=== PATIENT | male | born 1980 | race Hispanic/Latino ===

== ENCOUNTER 2025-01-02 15:05 | Inpatient (IN) | payer SELFPAY ==
[2025-01-02] MEDS ORDERED: ONDANSETRON 4 MG/2 ML VIAL ONE (15:53)
[2025-01-02] MEDS ORDERED: NA CHLORIDE 0.9% 1,000 ML ONE (15:53)
[2025-01-02 16:20] LABS: Anion Gap 10.7 mEq/L (5.0-15.0); Bilirubin Total 1.1 mg/dL (0.2-1.0); Potassium 3.7 mEq/L (3.5-5.1)
[2025-01-02 16:24] LABS: Absolute Eosinophils 0.1 K/uL (0-0.5); Absolute Lymphocytes (CBC) 1.8 K/uL (0.7-4.9); Absolute Neutrophil 6.2 K/uL (1.8-8.0); Basophils % 0.4 % (0-1.3); Eosinophils % 0.5 % (0-4.4); Hematocrit 46.2 % (39.6-49.0); Hemoglobin 15.1 g/dL (13.6-17.9); Lymphocytes % 19.9 % (15.3-44.8); MCH 29.9 pg (27.0-35.0); MCHC 32.7 g/dL (32.0-36.0); MCV 91.3 fL (80-100); MPV 9.6 fL (7.6-11.3); Monocytes % 11.1 % (3.3-12.3); Neutrophils % 68.1 % (41.7-73.7); Nucleated Red Blood Cells % 0.1 % (0-0); Platelets 185 thou/uL (152-406); RBC Red Blood Cell Count 5.06 M/uL (4.33-5.43); Red Cell Distribution Width 15.4 % (12.1-15.2)
[2025-01-02 16:27] LABS: Influenza A Ag Negative; Influenza B Ag Negative; SARS-CoV-2 Antigen Rapid Res Negative (Negative)
--- NOTE | 2025-01-02 17:12 | RAD REPORT ---
EXAMINATION: Abdomen Pelvis W Contrast CLINICAL INDICATION: Male, 44 years old.Abd pain;Distention TECHNIQUE: CT abdomen and pelvis was performed, after the administration of IV contrast, as per [facility] protocol. Axial, sagittal and coronal reconstructions were obtained. One or more of the following dose reduction techniques were used: Automated exposure control, adjustment of the mA and/o r kV according to patient size, and/or iterative reconstruction. Unless otherwise specified, incidental findings do not require dedicated imaging follow-up. [id number]. COMPARISON: No prior exam. FINDINGS: LOWER CHEST: Pulmonary edema with bilateral pleural effusions, right greater than left.No significant pericardial effusion. Moderate coronary artery calcifications. UPPER GI: No significant abnormality. LIVER: No significant focal abnormality. GALLBLADDER/BILE DUCTS: Pericholecystic edema likely related to underlying heart failure.? PANCREAS: No mass, ductal dilation, or deanne-pancreatic fluid. SPLEEN: Unremarkable. ADRENALS: No adrenal masses. KIDNEYS AND URETERS: No hydronephrosis.No suspicious renal mass.Nonobstructing renal calculi. ABDOMINAL AORTA AND OTHER VESSELS: Normal caliber aorta and IVC. PERITONEUM: Mild ascites. LYMPH NODES: No pathologic lymphadenopathy. ABDOMINAL WALL: Body wall edema SMALL BOWEL/COLON: Small bowel has normal course and caliber. No colonic wall thickening or pericolon ic inflammatory changes.Normal appendix. Mild diverticulosis without diverticulitis. URINARY BLADDER: Underdistended but grossly unremarkable. REPRODUCTIVE ORGANS: No pathologic process. MUSCULOSKELETAL: No acute or suspicious osseous abnormality. ADDITIONAL FINDINGS: None. IMPRESSION: No acute findings within the abdomen or pelvis. Findings concerning for congestive heart failure with pulmonary edema, bilateral pleural effusions, m ild ascites, and body wall edema. Gallbladder wall thickening is likely related to heart failure as well.
[2025-01-02 17:48] LABS: Troponin High Sensitivity 29.6 pg/mL (<58.9)
--- NOTE | 2025-01-02 18:06 | ER ---
Nurse's Notes [facility] Name: Ab Lo Age: 44 yrs Sex: Male : 1980 Arrival Date: 01/02/2025 Time: 15:05 Bed 14 Private MD: Diagnosis: New onset CHF, abdominal pain, difficulty breathing Presentation: 01/02 15:29 Chief complaint: Patient states: Abdominal pain, bloating, N/V, fever at night for 1 ll1 week. Coronavirus screen: Client denies travel out of the [place] in the last 14 days. At this time, the client does not indicate any symptoms associated with coronavirus-19. Ebola Screen: Patient denies travel to an Ebola-affected area in the 21 days before illness onset. Initial Sepsis Screen: Does the patient meet any 2 criteria? No. Patient's initial sepsis screen is negative. Does the patient have a suspected source of infection? No. Patient's initial sepsis screen is negative. Risk Assessment: Do you want to hurt yourself or someone else? Patient reports no desire to harm self or others. Onset of symptoms was December 26, 2024. 15:29 Method Of Arrival: Ambulatory ll1 15:29 Acuity: YEN 3 ll1 Triage Assessment: 15:31 General: Appears uncomfortable, Behavior is calm, cooperative, appropriate for age. ll1 Pain: Complains of pain in abdomen Quality of pain is described as aching, crampy. GI: Reports lower abdominal pain, upper abdominal pain, bloating, constipation, nausea. Historical: - Allergies: 15:31 No Known Allergies; ll1 - PMHx: 15:31 None; ll1 - Immunization history:: Adult Immunizations up to date. - Infectious Disease History:: Denies. - Social history:: Smoking status: Patient denies any tobacco usage or history of. Screenin:30 [facility] ED Fall Risk Assessment (Adult) History of falling in the last 3 months, me1 including since admission No falls in past 3 months (0 pts) Confusion or Disorientation No (0 pts) Intoxicated or Sedated No (0 pts) Impaired Gait No (0 pts) Mobility Assist Device Used No (0 pt) Altered Elimination No (0 pt) Score/Fall Risk Level 0 - 2 = Low Risk Maintained a safe environment, Provided non-skid footwear, Hourly rounding (assess needs \T\ fall precautionary measures) done. Abuse screen: Denies threats or abuse. Nutritional screening: No deficits noted. Tuberculosis screening: No symptoms or risk factors identified. Assessment: 15:30 General: Appears uncomfortable, ill, well groomed, well developed, well nourished, me1 Behavior is calm, cooperative, appropriate for age, Reports Abdominal pain, bloating, N/V, fever at night for 1 week. Pain: Complains of pain in abdomen Pain does not radiate. Pain currently is 5 out of 10 on a pain scale. Quality of pain is described as pressure, Pain began gradually, Is continuous. Neuro: Level of Consciousness is awake, alert, obeys commands, Oriented to person, place, time, situation, Appropriate for age. Cardiovascular: Patient's skin is warm and dry. Respiratory: Airway is patent Trachea midline Respiratory effort is even, unlabored, Respiratory pattern is regular, symmetrical. GI: No signs and/or symptoms were reported involving the gastrointestinal system. Bowel sounds present X 4 quads. Abd is soft X 4 quads. GI: Reports nausea, vomiting, since a Week ago. : No signs and/or symptoms were reported regarding the genitourinary system. EENT: No signs and/or symptoms were reported regarding the EENT system. Derm: Skin is intact, is healthy with good turgor, Skin is pink, warm \T\ dry. Musculoskeletal: No signs and/or symptoms reported regarding the musculoskeletal system. 17:20 Reassessment: No changes from previously documented assessment. Patient and/or family ll1 updated on plan of care and expected duration. Pain level reassessed. Vital Signs: 15:29 BP 125 / 96; Resp 18; Temp 98.1; Pulse Ox 97% on R/A; Weight 75.75 kg; Height 5 ft. 7 ll1 in. ; Pain 10/10; 16:00 BP 124 / 100; Pulse 100; Resp 18; Pulse Ox 98% ; me1 17:00 BP 126 / 105; Pulse 83; Resp 16; Pulse Ox 97% ; me1 18:00 BP 122 / 107; Pulse 90; Resp 19; Pulse Ox 93% on R/A; me1 19:00 BP 126 / 105; Pulse 87; Resp 18; Pulse Ox 98% ; me1 20:00 BP 112 / 82; Pulse 89; Resp 21; Pulse Ox 95% ; me1 21:00 BP 106 / 83; Pulse 86; Resp 21; Pulse Ox 97% ; me1 15:29 Body Mass Index 26.16 (75.75 kg, 170.18 cm) ll1 15:29 Pain Scale: Adult [facility] ED Course: 15:17 Patient arrived in ED. im 15:18 Kp Wade MD is Attending Physician. sp3 15:30 Patient has correct armband on for positive identification. Bed in low position. Call me1 light in reach. Side rails up X2. Provided Education on: POC. Verbalized understanding.. Client placed on continuous cardiac and pulse oximetry monitoring. NIBP monitoring applied. property assessment monitor on. Pulse ox on. NIBP on. 15:30 No provider procedures requiring assistance completed. me1 15:31 Triage completed. ll1 15:31 Arm band placed on Patient placed in an exam room, on a stretcher. ll1 15:42 Emily Keen, RN is Primary Nurse. me1 15:57 Initial lab(s) drawn, by ar, sent to lab. COVID swab sent to lab. Flu and/or RSV swab me1 sent to lab. Strep swab sent to lab. Inserted saline lock: 22 gauge in right antecubital area, using aseptic technique. 15:58 Lactate w/ 2H reflex if indic. Sent. me1 15:58 Group A Streptococcus Rapid Sent. me1 15:58 COVID-19 Ag + Flu A+B Ag Sent. me1 15:58 CBC with Diff Sent. me1 15:58 CMP Sent. me1 15:58 Lipase Sent. me1 17:03 CT Abd/Pelvis - IV Contrast Only In Process Unspecified. EDMS 17:31 NT PRO-BNP Sent. me1 17:31 Troponin HS Sent. me1 18:01 EKG done, by ED staff, reviewed by Kp Wade MD. me1 18:04 Alistair Martin MD is Hospitalizing Provider. sp3 18:06 Urine collected: clean catch specimen, cloudy, garry colored. me1 19:12 XRAY Chest (1 view) In Process Unspecified. EDMS 20:49 Patient admitted, IV remains in place. me1 Administered Medications: 16:02 Drug: Ondansetron IVP 4 mg IVP once; over 2 minutes Route: IVP; Site: right antecubital;me1 16:13 Follow up: Response: No adverse reaction; Nausea is decreased me1 16:02 Drug: NS 0.9% IV 1000 ml IV at 1 bolus Per protocol; to be given as a bolus over 60 me1 minutes Route: IV; Rate: 1 bolus; Site: right antecubital; 20:43 Follow up: IV Status: Completed infusion me1 18:15 Drug: Furosemide IVP 40 mg IVP once; give over 2 minutes Route: IVP; Site: right me1 antecubital; 18:24 Follow up: Response: No adverse reaction me1 Medication: 15:30 VIS not applicable for this client. me1 Output: 19:41 Urine: 2000ml (Voided); Total: 2000ml. me1 20:40 Urine: 800ml (Voided); Total: 2800ml. me1 Outcome: 18:05 Decision to Hospitalize by Provider. sp3 20:49 Admitted to Tele accompanied by tech, via wheelchair, room 408, with chart, Report me1 called to faxed, receipt confirmed with Faiza 20:49 Condition: stable 20:49 Instructed on the need for admit, 21:25 Patient left the ED. me1 Signatures: Dispatcher [employer] EDShahbaz Boogie RN RN ll1 Kp Wade MD MD sp3 Flor Dickson Michelle, RN RN me1 Corrections: (The following items were deleted from the chart) 15:32 15:29 Acuity: YEN 4 ll1 ll1 20:43 15:29 Chief complaint: Patient states: Abdominal pain, bloating, N/V, fever at night me1 for 1 week. ll1
--- NOTE | 2025-01-02 18:06 | EDPHYS ---
Physician Documentation [facility] Name: Ab Lo Age: 44 yrs Sex: Male : 1980 Arrival Date: 01/02/2025 Time: 15:05 Bed 14 Private MD: ED Physician Kp Wade HPI: 01/02 15:38 This 44 yrs old Male presents to ER via Ambulatory with complaints of sp3 Abdominal Pain, Abdominal Swelling, Nausea/Vomiting, Weakness. 15:38 44-year-old male with no known past medical history presents with chief complaint 1 sp3 week of abdominal pain, abdominal distention, nausea and vomiting. He denies any other symptoms including fever, chest pain, shortness of breath, back pain, symptoms, bleeding, syncope, rash, known sick contacts, travel history, prolonged immobilization, or any other signs or symptoms on ROS at this time. He does endorse sore throat as an exception. Patient has no primary care physician, takes no medications, and has had no major surgeries.. Historical: - Allergies: 15:31 No Known Allergies; ll1 - PMHx: 15:31 None; ll1 - Immunization history:: Adult Immunizations up to date. - Infectious Disease History:: Denies. - Social history:: Smoking status: Patient denies any tobacco usage or history of. ROS: 15:39 Constitutional: Negative for fever, chills, and weight loss, Eyes: Negative for injury, sp3 pain, redness, and discharge, Neck: Negative for injury, pain, and swelling, Cardiovascular: Negative for chest pain, palpitations, and edema, Respiratory: Negative for shortness of breath, cough, wheezing, and pleuritic chest pain, Back: Negative for injury and pain, MS/Extremity: Negative for injury and deformity, Skin: Negative for injury, rash, and discoloration, Neuro: Negative for headache, weakness, numbness, tingling, and seizure, Psych: Negative for depression, anxiety, suicide ideation, homicidal ideation, and hallucinations, Allergy/Immunology: Negative for hives, rash, and allergies, Endocrine: Negative for neck swelling, polydipsia, polyuria, polyphagia, and marked weight changes, 15:39 All other systems are negative, Exam: 15:39 Constitutional: This is a well developed, well nourished patient who is awake, alert, sp3 and in no acute distress. Head/Face: Normocephalic, atraumatic. Eyes: Pupils equal round and reactive to light, extra-ocular motions intact. Lids and lashes normal. Conjunctiva and sclera are non-icteric and not injected. Cornea within normal limits. Periorbital areas with no swelling, redness, or edema. ENT: Nares patent. No nasal discharge, no septal abnormalities noted. External auditory canals are clear. Oropharynx with no redness, swelling, or masses, exudates, or evidence of obstruction, uvula midline. Mucous membranes moist. Neck: Trachea midline, no thyromegaly or masses palpated, and no cervical lymphadenopathy. Supple, full range of motion without nuchal rigidity, or vertebral point tenderness. No Meningismus. Chest/axilla: Normal chest wall appearance and motion. Nontender with no deformity. No lesions are appreciated. Cardiovascular: Regular rate and rhythm with a normal S1 and S2. No gallops, murmurs, or rubs. Normal PMI, no JVD. No pulse deficits. Respiratory: Lungs have equal breath sounds bilaterally, clear to auscultation and percussion. No rales, rhonchi or wheezes noted. No increased work of breathing, no retractions or nasal flaring. Back: No spinal tenderness. No costovertebral tenderness. Full range of motion. Skin: Warm, dry with normal turgor. Normal color with no rashes, no lesions, and no evidence of cellulitis. MS/ Extremity: Pulses equal, no cyanosis. Neurovascular intact. Full, normal range of motion. Neuro: Awake and alert, GCS 15, oriented to person, place, time, and situation. Cranial nerves II-XII grossly intact. Motor strength 5/5 in all extremities. Sensory grossly intact. Cerebellar exam normal. Normal gait. Psych: Awake, alert, with orientation to person, place and time. Behavior, mood, and affect are within normal limits. 15:39 Abdomen/GI: Abdomen soft, mildly distended, diffuse pain to palpation without peritoneal signs, rebound or guarding., 17:59 ECG was reviewed by the Attending Physician. EKG demonstrates normal sinus rhythm at 88 sp3 bpm with normal intervals except QTc of 505, leftward axis, nonspecific diffuse ST/T changes without evidence of acute ischemia. Vital Signs: 15:29 BP 125 / 96; Resp 18; Temp 98.1; Pulse Ox 97% on R/A; Weight 75.75 kg; Height 5 ft. 7 ll1 in. ; Pain 10/10; 16:00 BP 124 / 100; Pulse 100; Resp 18; Pulse Ox 98% ; me1 17:00 BP 126 / 105; Pulse 83; Resp 16; Pulse Ox 97% ; me1 18:00 BP 122 / 107; Pulse 90; Resp 19; Pulse Ox 93% on R/A; me1 19:00 BP 126 / 105; Pulse 87; Resp 18; Pulse Ox 98% ; me1 20:00 BP 112 / 82; Pulse 89; Resp 21; Pulse Ox 95% ; me1 21:00 BP 106 / 83; Pulse 86; Resp 21; Pulse Ox 97% ; me1 15:29 Body Mass Index 26.16 (75.75 kg, 170.18 cm) ll1 15:29 Pain Scale: Adult ll1 MDM: 15:22 Medical Screening Exam initiated sp3 15:40 Data reviewed: vital signs, nurses notes, lab test result(s), radiologic studies. ED sp3 course: 44-year-old male with abdominal pain and distention. Differential diagnosis includes gastritis, biliary pathology, cholelithiasis, cholecystitis, pancreatitis, colitis, viral illness, foodborne illness, ileus, SBO, pathology including UTI and kidney stone, among others. Workup will include general labs, CT scan of the abdomen pelvis with IV contrast, IV fluids, ondansetron IV, and general supportive care and observation. Disposition pending workup and patient course.. 18:00 ED course: Abdominal workup negative. Patient has abdominal fullness likely from body sp3 wide edema and congestive heart failure leading to his sore throat as well. Troponin negative and EKG demonstrates no ischemic findings. Will administer Lasix and admit patient for cardiology consult and echocardiogram.. 01/02 15:34 Order name: CBC with Diff; Complete Time: 17:27 sp3 01/02 15:34 Order name: CMP; Complete Time: 17:27 sp3 01/02 15:34 Order name: Lipase; Complete Time: 17:27 sp3 01/02 15:34 Order name: Urinalysis w/ reflexes sp3 01/02 15:34 Order name: COVID-19 Ag + Flu A+B Ag; Complete Time: 17:27 3 01/02 15:34 Order name: Group A Streptococcus Rapid; Complete Time: 17:27 3 01/02 15:34 Order name: Lactate w/ 2H reflex if indic.; Complete Time: 17:27 3 01/02 16:30 Order name: Throat Culture [facility] 01/02 17:28 Order name: NT PRO-BNP; Complete Time: 17:54 3 01/02 17:28 Order name: Troponin HS; Complete Time: 17:54 3 01/02 19:40 Order name: CBC with Automated Diff [facility] 01/02 19:40 Order name: CBC with Automated Diff [facility] 01/02 19:40 Order name: Comprehensive Metabolic Panel [facility] 01/02 19:40 Order name: Comprehensive Metabolic Panel [facility] 01/02 19:40 Order name: Lipid Profile [facility] 01/02 19:40 Order name: Lipid Profile [facility] 01/02 19:40 Order name: Magnesium [facility] 01/02 19:40 Order name: Magnesium [facility] 01/02 19:40 Order name: Phosphorus [facility] 01/02 19:40 Order name: Phosphorus [facility] 01/02 15:34 Order name: CT Abd/Pelvis - IV Contrast Only; Complete Time: 17:27 3 01/02 17:28 Order name: XRAY Chest (1 view) [facility] 01/02 19:40 Order name: Echo without Doppler (2D) [facility] 01/02 19:40 Order name: Chest Pa And Lat (2 Views) [facility] 01/02 19:40 Order name: Chest Pa And Lat (2 Views) [facility] 01/02 15:34 Order name: IV Saline Lock; Complete Time: 15:58 3 01/02 15:34 Order name: Labs collected and sent; Complete Time: 15:58 3 01/02 17:28 Order name: Cardiac monitoring; Complete Time: 18:01 3 01/02 17:28 Order name: EKG - Nurse/Tech; Complete Time: 18:01 3 01/02 17:28 Order name: O2 Sat Monitoring; Complete Time: 17:31 3 Administered Medications: 16:02 Drug: Ondansetron IVP 4 mg IVP once; over 2 minutes Route: IVP; Site: right antecubital;me1 16:13 Follow up: Response: No adverse reaction; Nausea is decreased me1 16:02 Drug: NS 0.9% IV 1000 ml IV at 1 bolus Per protocol; to be given as a bolus over 60 me1 minutes Route: IV; Rate: 1 bolus; Site: right antecubital; 20:43 Follow up: IV Status: Completed infusion me1 18:15 Drug: Furosemide IVP 40 mg IVP once; give over 2 minutes Route: IVP; Site: right me1 antecubital; 18:24 Follow up: Response: No adverse reaction me1 Disposition Summary: 01/02/25 18:05 Hospitalization Ordered Notes: Hospitalization Status: Inpatient Admission sp3 Provider: Alistair Martin sp3 Location: Telemetry/MedSurg (Inpatient) sp3 Condition: Stable sp3 Problem: new sp3 Symptoms: have worsened sp3 Bed/Room Type: Standard sp3 Room Assignment: 408(01/02/25 20:24) kmf Diagnosis - New onset CHF, abdominal pain, difficulty breathing sp3 Forms: - Medication Reconciliation Form sp3 - SBAR form sp3 - Leadership Thank You Letter sp3 Signatures: Dispatcher [employer] Shahbaz Osorio RN RN ll1 Kp Wade MD MD sp3 Emily Keen RN RN nh1 Danay Becker [facility] Corrections: (The following items were deleted from the chart) 15:35 15:35 CBC+H.LAB.BRZ ordered. EDMS EDMS 15:35 15:35 COMPREHENSIVE METABOLIC PANEL+C.LAB.BRZ ordered. EDMS EDMS 15:35 15:35 LIPASE+C.LAB.BRZ ordered. EDMS EDMS 15:35 15:35 Urinalysis+U.LAB.BRZ ordered. EDMS EDMS 15:35 15:35 COVID-19 Ag + Flu A+B Ag+I.LAB.BRZ ordered. EDMS EDMS 15:35 15:35 Group A Streptococcus Rapid Sc+I.LAB.BRZ ordered. EDMS EDMS 15:35 15:35 LACTATE+C.LAB.BRZ ordered. EDMS EDMS 15:35 15:35 Abdomen Pelvis W Con+CT.RAD.BRZ ordered. EDMS EDMS 17:28 17:28 Chest Single View+RAD.RAD.BRZ ordered. EDMS EDMS 20:24 18:05 sp3 kmf
[2025-01-02 18:10] LABS: Sqamous Epithelial <5 /HPF (None Seen); Urine Bacteria None Seen /HPF (<20); Urine Bilirubin NEGATIVE (Negative); Urine Blood Negative (Negative); Urine Clarity Clear (Clear); Urine Color Yellow (Yellow); Urine Culture Reflex Order NOT NEEDED; Urine Glucose NEGATIVE (Negative); Urine Ketones 1+ (Negative); Urine Microscopic Reflex YN ORDER UMIC; Urine Mucus Slight /HPF (None Seen); Urine Nitrite NEGATIVE (Negative); Urine Protein 2+ (Negative); Urine RBC <5 /HPF (None Seen); Urine Urobilinogen Normal (Normal); Urine WBC <5 /HPF (<5); Urine Yeast (Budding) Trace /HPF (None Seen); Urine pH 6.5 (5.0-7.0)
[2025-01-02] MEDS ORDERED: FUROSEMIDE 40 MG/4 ML VIAL ONE (18:13)
[2025-01-02 18:18] LABS: Specific Gravity > 1.030 (1.005-1.030)
--- NOTE | 2025-01-02 19:22 | RAD REPORT ---
EXAM: Chest Single View HISTORY: 44 years Male CHF, abnormal CT A/P COMPARISON: None. FINDINGS: LUNGS/PLEURA: Pulmonary edema. CARDIAC/MEDIASTINUM: Moderate cardiomegaly. UPPER ABDOMEN: No significant abnormality. BONES: No acute abnormality. LINES/TUBES/OTHER: N/A IMPRESSION: Pulmonary edema.
--- NOTE | 2025-01-02 19:24 | P.HP ---
Certification for Inpatient Patient admitted to: Inpatient With expected LOS: >2 Midnights Practitioner: I am a practitioner with admitting privileges, knowledge of patient current condition, hospital course, and medical plan of care. Services: Services provided to patient in accordance with Admission requirements found in Title 42 Section 412.3 of the Code of Federal Regulations Patient History Date of Service: 01/02/25 Reason for admission: abdominal distension History of Present Illness: 44-year-old male presents to the ER with complaints of 1 week history of abdominal pain abdominal swelling, neck swelling, nausea and vomiting and weakness. Reported some dyspnea especially dyspnea on exertion. He reports he is generally in [facility]. States he drinks about 3-4 beers a week. He states that his stools have recently been very watery. Denies any blood in the stool. He states he may have had fevers at night but not sure he did not check. A CT of the abdomen pelvis was done which did not show any acute findings. Lungs did show pulmonary edema with bilateral pleural effusion. As well as moderate coronary artery calcification. His lab work did reveal an elevated BNP. Review of Systems 10-point ROS is otherwise unremarkable Respiratory: Shortness of Breath Cardiovascular: Chest Pain, Palpitations Gastrointestinal: Abdominal Pain, Diarrhea, Distention Physical Examination - Physical Exam General: Alert, Oriented x3 HEENT: Atraumatic, Normocephalic Respiratory: Clear to auscultation bilaterally, Normal air movement Cardiovascular: Regular rate/rhythm Gastrointestinal: Distended Musculoskeletal: No swelling Integumentary: No rashes Neurological: Normal speech, Normal strength at 5/5 x4 extr - Studies Laboratory Data (last 24 hrs) 01/02/25 01/02/25 15:51 15:51 WBC 9.10 Hgb 15.1 Hct 46.2 Plt Count 185 Sodium 140 Potassium 3.7 BUN 16 Creatinine 0.97 Glucose 104 Total Bilirubin 1.1 H AST 43 H ALT 58 Alkaline Phosphatase 94 Lipase 47 Assessment and Plan - Problems (Diagnosis) (1) Diarrhea Current Visit: Yes Status: Acute (2) Abdominal pain Current Visit: Yes Status: Acute - Plan 44 yo male presents with one week history of abdominal distension, sob, and chest and abdominal pain #suspected chf exacerbation --no baseline echo --elevated bnp --check echo, lasix, salt restriction #Pulmonary edema --as above --cxr pending #abdominal pain, and distension --drinks 3-4 beers per week --will order maalox, lasix, ppi lipase wnl #diarrhea --send stool studies DVT: SCDs - Advance Directives Does patient have a Living Will: No Does patient have a Durable POA for Healthcare: No
[2025-01-02] MEDS ORDERED: MAGNES/ALUMIN/SIMET 30ML UCUP PO PRN (19:31)
[2025-01-02] MEDS ORDERED: ONDANSETRON 4 MG/2 ML VIAL IV PRN (19:31)
[2025-01-02] MEDS: FUROSEMIDE 40 MG/4 ML VIAL IV SCH (19:31)
[2025-01-02 23:26] VITALS: BMI 26.2
[2025-01-03] MEDS: PANTOPRAZOLE 40MG TABLET PO SCH (06:16)
[2025-01-03 06:45] LABS: Absolute Eosinophils 0.1 K/uL (0-0.5); Absolute Lymphocytes (CBC) 1.7 K/uL (0.7-4.9); Absolute Monocytes 0.7 K/uL (0.1-1.3); Absolute Neutrophil 4.4 K/uL (1.8-8.0); Basophils % 0.6 % (0-1.3); Hematocrit 46.7 % (39.6-49.0); Hemoglobin 15.4 g/dL (13.6-17.9); MCH 30.5 pg (27.0-35.0); MCV 92.4 fL (80-100); MPV 9.2 fL (7.6-11.3); Monocytes % 10.7 % (3.3-12.3); Neutrophils % 62.7 % (41.7-73.7); Nucleated Red Blood Cells % 0.1 % (0-0); Platelets 171 thou/uL (152-406); RBC Red Blood Cell Count 5.05 M/uL (4.33-5.43); Red Cell Distribution Width 15.3 % (12.1-15.2)
[2025-01-03 07:02] LABS: Albumin 2.8 g/dL (3.4-5.0); Albumin/Globulin Ratio 0.9 (1.1-1.8); Anion Gap 9.8 mEq/L (5.0-15.0); Phosphorus 3.3 mg/dL (2.5-4.9); Potassium 3.8 mEq/L (3.5-5.1); Protein, Total 5.8 g/dL (6.4-8.2)
[2025-01-03] MEDS: ENOXAPARIN 40 MG/0.4 ML SQ SCH (08:33)
[2025-01-03 10:30] LABS: Blood Morphology Comment NOT SEEN (NOT SEEN); Platelet Estimate ADEQ; Platelets Clumped FEW; White Blood Cell Scan OK (OK)
--- NOTE | 2025-01-03 11:32 | RAD REPORT ---
EXAMINATION: TWO VIEW CHEST XR CLINICAL INDICATION: Male, 44 years old. chf TECHNIQUE: 2 view radiographs of the chest were performed. COMPARISON: 01/02/2025 FINDINGS: Partial but near complete improvement of central interstitial prominence and prominent vascular marlo ngs. No pneumothorax or sizable effusion. Partial improvement of cardiomegaly. Mediastinal contours are unremarkable. IMPRESSION: Improving edema/congestion as above.
--- NOTE | 2025-01-03 12:18 | EKG ---
Test Date: 2025-01-02 Test Time: 17:56:52 Store Clerk Checker: MEASUREMENT RESULTS: Intervals: Rate: 88 CA: 174 QRSD: 94 QT: 418 QTc: 505 [place]: P: 63 CA: 174 QRS: 149 T: 263 INTERPRETIVE STATEMENTS: Normal sinus rhythm Indeterminate axis Low voltage QRS Cannot rule out Anteroseptal infarct, age undetermined ST & T wave abnormality, consider inferolateral ischemia Prolonged QT Abnormal ECG No previous ECG available for comparison Electronically Signed On 01-03-25 12:18:18 CDT by Bennie Root
--- NOTE | 2025-01-03 14:05 | ECHO ---
HEIGHT: 5 ft 7 in WEIGHT: 167 lb 0 oz DATE OF STUDY: 01/03/[address]: Alistair Martin MD 2-DIMENSIONAL: YES M.MODE: YES DOPPLER: YES COLOR FLOW: YES TDS: PORTABLE: YES DEFINITY: BUBBLE STUDY: DIAGNOSIS: CONGESTIVE HEART FAILURE CARDIAC HISTORY: CATHERIZATION: NO SURGERY: NO PROSTHETIC VALVE: NO PACEMAKER: NO MEASUREMENTS (cm) DIASTOLIC (NORMALS) SYSTOLIC (NORMALS) IVSd 0.8 (0.6-1.2) LA Diam 4.3 (1.9-4.0) LVEF 30-35% LVIDd 5.6 (3.5-5.7) LVIDs 5.4 (2.0-3.5) %FS LVPWd 1.1 (0.6-1.2) Ao Diam 3.0 (2.0-3.7) 2 DIMENSIONAL ASSESSMENT: RIGHT ATRIUM: NORMAL LEFT ATRIUM: MILDLY DILATED RIGHT VENTRICLE: NORMAL LEFT VENTRICLE: MILDLY DILATED TRICUSPID VALVE: MILD TRICUSPID REGURGITATION MITRAL VALVE: MILD MITRAL REGURGITATION PULMONIC VALVE: NORMAL AORTIC VALVE: NORMAL PERICARDIAL EFFUSION: NONE AORTIC ROOT: NORMAL LEFT VENTRICULAR WALL MOTION: SEVERE GLOBAL HYPOKINESIS DOPPLER/COLOR FLOW: GRADE II DIASTOLIC DYSFUNCTION COMMENTS: 1. SEVERELY REDUCED LEFT VENTRICULAR SYSTOLIC FUNCTION, EJECTION FRACTION 30-35%, SEVERE GLOBAL HYPOKINESIS 2. DIASTOLIC DYSFUNCTION 3. ELEVATED FILLING PRESSURE (RIGHT ATRIAL PRESSURE 15-20 mmHg) TECHNOLOGIST: RM XIAO
--- NOTE | 2025-01-03 18:18 | P.PN ---
Date of Service: 01/03/25 Subjective Awake and feeling better this morning no new complaints ROS 10 point ROS as noted above, otherwise negative Physical Exam General: Alert and Oriented x3, NAD HEENT: Atraumatic, Normocephalic Respiratory: Clear to auscultation bilaterally, Normal air movement Cardiovascular: RRR, S1 S2 present Gastrointestinal: Distended, nontender Musculoskeletal: No swelling Integumentary: No rashes Neurological: Normal speech, Normal strength at 5/5 x4 extr Vitals Reviewed Problem list suspected new onset chf exacerbation Pulmonary edema abdominal pain, and distension diarrhea Assessment and Plan suspected new onset chf exacerbation -no baseline echo -elevated bnp - echo reports EF 30-35%, mild tricuspid and mitral regurgitation, diastolic dysfunction -continue lasix, salt restriction -consult Cardiology Pulmonary edema -as above -cxr pending abdominal pain, and distension -drinks 3-4 beers per week - maalox, lasix, ppi -lipase wnl diarrhea -send stool studies -potassium stable DVT Ppx: SCDs Full code LOS 2 days
--- NOTE | 2025-01-04 11:45 | P.CNS ---
Date of Consult: 01/04/25 Chief Complaint: abdominal distension History of Present Illness: Patient with no significant PMH presented with worsening SOB, PECK and abdominal distention, report occasional chest pain, no palpitations, no syncope. Allergies No Known Allergies Allergy (Unverified 01/02/25 19:25) Home medications list reviewed: Yes Home Medications: NK [No Home Meds] 01/02/25 - Past Medical/Surgical History Diabetic: No - Social History Place of Residence: Home Review of Systems 10-point ROS is otherwise unremarkable Physical Examination Temp Pulse Resp BP Pulse Ox 97.6 F 83 17 108/84 94 01/04/25 08:00 01/04/25 08:18 01/04/25 08:00 01/04/25 08:18 01/04/25 08:00 General: Alert, In no apparent distress HEENT: Atraumatic, PERRLA, Mucous membr. moist/pink, EOMI, Sclerae nonicteric Neck: Supple, 2+ carotid pulse no bruit, No LAD, Without JVD or thyroid abnormality Respiratory: Clear to auscultation bilaterally, Normal air movement Cardiovascular: Regular rate/rhythm, Normal S1 S2 Gastrointestinal: Normal bowel sounds, No tenderness Musculoskeletal: No tenderness Integumentary: No rashes Neurological: Normal gait, Normal speech, Normal tone, Normal affect Lymphatics: No axilla or inguinal lymphadenopathy - Problems (1) Acute systolic heart failure Current Visit: Yes Status: Acute Plan: Patient with new drop in EF, plan is to do coronary angiogram increase lasix to 40 mg IV BID Add coreg 3.125 mg po bid add lisinopril 2.5 mg daily add aldactone 12.5 mg daily continue to monitor input and output and electrolytes.
[2025-01-04] MEDS ORDERED: HEPARIN 10,000 UNIT/10 ML VIAL IV ONE (11:56)
[2025-01-04] MEDS ORDERED: HEPA 1000U/500MLS 1,000 UNIT/500 ML BAG IV ONE (11:56)
[2025-01-04] MEDS ORDERED: NITROGLYCERIN/D5W 50 MG/250 ML BTL IV ONE (11:56)
[2025-01-04] MEDS ORDERED: LIDOCAINE 1% 20 ML MDV ONE (11:57)
[2025-01-04] MEDS ORDERED: CLOPIDOGREL 75 MG TABLET ONE (11:57)
[2025-01-04] MEDS ORDERED: HEPARIN 5000 UNIT/ML 1 ML VIAL ONE (11:57)
[2025-01-04] MEDS ORDERED: ATROPINE SULF 1 MG/10 ML SYR IV ONE (11:57)
[2025-01-04] MEDS ORDERED: MIDAZOLAM HCL 2 MG/2 ML INJ ONE (11:57)
[2025-01-04] MEDS ORDERED: TICAGRELOR 90 MG TABLET PO ONE (11:58)
[2025-01-04] MEDS ORDERED: FENTANYL CITR 100 MCG/2 ML ONE (11:58)
[2025-01-04] MEDS ORDERED: ASPIRIN 325 MG TAB ONE (11:58)
[2025-01-04] MEDS ORDERED: NA CHLORIDE 0.9% 500 ML ONE (12:11)
--- NOTE | 2025-01-04 13:14 | OP ---
Date of Procedure: 01/04/2025 Surgeon: Bennie Root Procedure Performed: Selective coronary angiogram. Indication For Procedure: Acute systolic heart failure. Complications: None. Estimated Blood Loss: Less than 50 cc. Access: Right radial, closed by TR band. Sedation Time: 20 minutes with 1 of Versed and 25 of fentanyl. Description Of Procedure: After risks, benefits, and alternatives were explained to the patient, the patient agreed to proceed with procedure and signed informed consent. The patient was brought back to the grinding and polishing laborer, prepped and draped in sterile fashion. Time-out was performed. Sedation was admini stered. Next, right radial access was obtained using ultrasound-guided micropuncture technique. Tig er 4 catheter was advanced through the aortic root. Selective angiogram was done using same catheter . At the end of procedure, catheter was removed over a J-wire. Sheath was removed. TR band was caro lied. Hemostasis achieved. The patient was moved back to recovery in stable condition. Findings: 1. Left main normal. 2. LAD normal. 3. Left circ normal. 4. RCA normal. Assessment And Plan: Normal coronaries, nonischemic cardiomyopathy. Plan is to continue medical management. YANN/ADAM Voice ID: [id number] Report ID: [id number]
--- NOTE | 2025-01-04 14:16 | P.PN ---
Date of Service: 01/04/25 Subjective Continues to do well [facility] today with normal coronaries no new complaints ROS 10 point ROS as noted above, otherwise negative Physical Exam General: AAO x3, NAD Respiratory: Clear to auscultation bilaterally, Normal air movement Cardiovascular: RRR, S1 S2 present Gastrointestinal: soft and nontender on palpation Musculoskeletal: No swelling Integumentary: No rashes Neurological: Normal speech, Normal strength at 5/5 x4 extr Vitals Reviewed Problem list New onset CHFexacerbation Pulmonary edema abdominal pain, and distension diarrhea Assessment and Plan New onset CHF exacerbation - no baseline echo - elevated bnp - echo reports EF 30-35%, mild tricuspid and mitral regurgitation, diastolic dysfunction -continue lasix, salt restriction -Cardiology following, add Coreg 3.125 mg twice daily, lisinopril 2. 5 mg daily, Aldactone 12.5 mg daily -[facility] with normal coronaries (01/04/25) Pulmonary edema -as above -cxr reports "Improving edema/congestion as above" Abdominal pain/distension -drinks 3-4 beers per week -maalox, lasix, ppi -lipase wnl Diarrhea -send stool studies if possible -potassium stable DVT Ppx: SCDs Full code LOS 2 days
[2025-01-04 15:16] VITALS: O2SAT 98
[2025-01-04 16:11] VITALS: TEMP 97.8
[2025-01-04] MEDS: FUROSEMIDE 40 MG/4 ML VIAL IV SCH (16:14)
[2025-01-04] MEDS: HYDROCODONE/APAP 5/325 MG TAB PO ONE (16:51)
[2025-01-04 16:52] VITALS: BP 101/70
[2025-01-04] MEDS: carvediloL 3.125 MG TAB PO SCH (16:52)
[2025-01-05] MEDS ORDERED: lisinopriL 5 MG TAB PO SCH (09:00)
[2025-01-05] MEDS ORDERED: SPIRONOLACTONE 25 MG TABLET PO SCH (09:00)
--- NOTE | 2025-01-09 18:54 | P.DS ---
Admission Date: 01/02/25 Discharge Date: 01/04/25 Disposition: ROUTINE DISCHARGE Discharge Condition: GOOD Reason for Admission: abdominal distension Brief History of Present Illness: Diagnosis Acute systolic heart failure Pulmonary edema abdominal pain, and distension diarrhea HPI 01/02/25 44-year-old male presents to the ER with complaints of 1 week history of abdominal pain abdominal swelling, neck swelling, nausea and vomiting and weakness. Reported some dyspnea especially dyspnea on exertion. He reports he is generally in okay health. States he drinks about 3-4 beers a week. He states that his stools have recently been very watery. Denies any blood in the stool. He states he may have had fevers at night but not sure he did not check. A CT of the abdomen pelvis was done which did not show any acute findings. Lungs did show pulmonary edema with bilateral pleural effusion. As well as moderate coronary artery calcification. His lab work did reveal an elevated BNP. Hospital Course: Ab was admitted and treated for the following diagnosis Acute systolic heart failure Patient was seen by Dr. Root, add Coreg 3.125 mg twice daily, lisinopril 2. 5 mg daily, Aldactone 12.5 mg daily Patient had LHC with normal coronaries (01/04/25), Per Cardiology and plans to continue medical management elevated bnp Echo reports EF 30-35%, mild tricuspid and mitral regurgitation, diastolic dysfunction Pulmonary edema-cxr reports "Improving edema/congestion as above", he did not require oxygen this admission, Lasix administered with 1200 UOP Abdominal pain/distension Diarrhea -lipase wnl -no diarrhea this admission On 01/04/25, Ab was seen on morning rounds hemodynamically stable. Dr. Root evaluated and performed a LHC finding normal coronaries. Dr. Root has cleared him for discharge with follow up at his clinic. Aldactone, Coreg, Lasix, lisinopril were prescribed. Physical Exam General: Oriented x3, NAD Respiratory: Clear BBS, Normal air movement, on RA Cardiovascular: Normal sinus rhythm, S1 S2 present Gastrointestinal: soft and nontender on palpation, active bowel sounds Musculoskeletal: No swelling Neurological: Normal speech, Normal strength at 5/5 x4 extr Vital Signs/Physical Exam: Temp Pulse Resp BP Pulse Ox 97.8 F 80 18 101/70 98 01/04/25 16:00 01/04/25 16:52 01/04/25 16:51 01/04/25 16:52 01/04/25 16:51 Laboratory Data at Discharge: WBC 7.00 thou/uL (4.3-10.9) 01/03/25 06:30 Hgb 15.4 g/dL (13.6-17.9) 01/03/25 06:30 Hct 46.7 % (39.6-49.0) 01/03/25 06:30 Plt Count 171 thou/uL (152-406) 01/03/25 06:30 Sodium 142 mEq/L (136-145) 01/03/25 06:30 Potassium 3.8 mEq/L (3.5-5.1) 01/03/25 06:30 BUN 17 mg/dL (7-18) 01/03/25 06:30 Creatinine 0.95 mg/dL (0.70-1.30) 01/03/25 06:30 Glucose 90 mg/dL (74-106) 01/03/25 06:30 Phosphorus 3.3 mg/dL (2.5-4.9) 01/03/25 06:30 Magnesium 2.0 mg/dL (1.6-2.4) 01/03/25 06:30 Total Bilirubin 1.0 mg/dL (0.2-1.0) 01/03/25 06:30 AST 32 U/L (15-37) 01/03/25 06:30 ALT 49 U/L (16-61) 01/03/25 06:30 Alkaline Phosphatase 86 U/L (45-117) 01/03/25 06:30 Triglycerides 125 mg/dL (<150) 01/03/25 06:30 Cholesterol 117 mg/dL (<200) 01/03/25 06:30 HDL Cholesterol 33 mg/dL (40-60) L 01/03/25 06:30 Cholesterol/HDL Ratio 3.55 01/03/25 06:30 Lipase 47 U/L (13-75) 01/02/25 15:51 Home Medications: Furosemide [Lasix] 40 mg PO DAILY 7 Days #7 tab 01/04/25 Spironolactone [Aldactone*] 12.5 mg PO DAILY 30 Days #15 tab 01/04/25 carvediloL [Coreg*] 3.125 mg PO BID 6AM 6PM 30 Days #60 tab 01/04/25 lisinopriL [Prinivil*] 2.5 mg PO DAILY 30 Days #15 tab 01/04/25 New Medications: Spironolactone [Aldactone*] 12.5 mg PO DAILY 30 Days #15 tab carvediloL [Coreg*] 3.125 mg PO BID 6AM 6PM 30 Days #60 tab Furosemide [Lasix] 40 mg PO DAILY 7 Days #7 tab lisinopriL [Prinivil*] 2.5 mg PO DAILY 30 Days #15 tab Physician Discharge Instructions: 1. Please call and schedule a follow-up appointment with your PCP in 3-5 days - Please follow-up with your PCP for medication refills/adjustments 2. Please call and schedule a follow-up appointment with Dr. Root in 3-5 days 3. Continue heart healthy diet 4. activity restrictions fall precautions 5. Return to the ED if symptoms worsen New medications Aldactone 12.5 mg daily x 30 days, may need to split the pill in half depending on the pharmacy's dosage Coreg 3.125 mg twice daily x 30 days Lasix 40 mg daily x 7 doses Lisinopril 2.5 mg daily x 30 days Diet: AHA Activity: Ad brian Followup: NONE,NONE [Primary Care Provider] -
== END 2025-01-04 19:17 | disposition home or self-care (01) | DRG 287 ==
LOC: ER 15:05 → ERHOLD 19:31 → 4TH 20:51
PROVIDERS: ADMIT Internal Medicine; ATTEND Internal Medicine
PROC: B2111ZZ Fluoroscopy of Multiple Coronary Arteries using Low Osmolar Contrast (ICD-10-PCS; principal; 2025-01-04)
PROC: 4A023N7 Measurement of Cardiac Sampling and Pressure, Left Heart, Percutaneous Approach (ICD-10-PCS; 2025-01-04)
DX: I50.21 Acute systolic (congestive) heart failure (principal); J81.0 Acute pulmonary edema; F10.90 Alcohol use, unspecified, uncomplicated; R19.7 Diarrhea, unspecified; R14.0 Abdominal distension (gaseous); Z11.52 Encounter for screening for COVID-19
CPT/HCPCS: 36415; 71045; 71046; 74177; 76937; 80053; 80061; 81001; 83605; 83690; 83735; 83880; 84100; 84484; 85025; 87070; 87428; 93005; 93306; 93454; 96361; 96374; 96375; 99152; 99153; 99285; C1893; J0461; J1644; J1650; J1940; J2003; J2250; J2405; J3010; J7030; J7040; Q9966; Q9967